=== PATIENT | female | born 1995 | race Caucasian/White ===

== ENCOUNTER 2024-05-01 02:18 | Observation (INO) | payer BC, SELFPAY ==
[2024-04-30 20:36] VITALS: BP 124/80
[2024-04-30 20:50] LABS: % Basophils 0.4 % (0-2); % Eosinophils 0.2 % (0-6); % Immature Granulocytes 0.3 % (0-0.5); % Lymphocytes 8.9 % (20.5-51.1); % Monocytes 3.8 % (1.7-9.3); % Neutrophils 86.4 % (42.2-75.2); Absolute Basophils 0.1 10^3/uL (0-0.2); Absolute Immature Granulocytes 0.1 10^3/uL (0-0.05); Absolute Lymphocytes 1.4 10^3/uL (1.2-3.4); Absolute Monocytes 0.6 10^3/uL (0.1-0.6); Absolute Neutrophils 14.1 10^3/uL (1.4-6.5); Hemoglobin 13.5 g/dL (12.0-16.0); Mean Corp Hgb Conc. 36.5 g/dL (33.0-37.0); Mean Corpuscular Hgb 29.7 pg (27.0-31.0); Mean Corpuscular Volume 81.3 fL (81.0-99.0); Mean Platelet Volume 9.3 fL (7.4-10.4); Nucleated Red Blood Cells % 0 %; Platelet Count 278 10^3/uL (130-400); Red Blood Cell Count 4.55 10^6/uL (4.20-5.40); Red Cell Dist. Width 11.7 % (11.5-14.5); White Blood Cell Count 16.2 10^3/uL (4.8-10.8)
[2024-04-30 21:01] LABS: Lactic Acid 1.1 mmol/L (0.7-2.0)
[2024-04-30 21:05] LABS: HCG, Serum Qualitative Screen Negative
[2024-04-30 21:15] LABS: ALT (SGPT) 21 U/L (0-35); AST (SGOT) 27 U/L (14-36); Albumin 4.7 g/dl (3.5-5.0); Alkaline Phosphatase 50 U/L (38-126); Blood Urea Nitrogen 13 mg/dl (7-17); Calcium 9.9 mg/dl (8.4-10.2); Carbon Dioxide 18 mmol/L (22-30); Chloride 107 mmol/L (98-107); Glucose 123 mg/dl (70-99); Lipase 124 U/L (23-300); Potassium 4.1 mmol/L (3.5-5.1); Sodium 139 mmol/L (135-145); Total Bilirubin 0.6 mg/dl (0.2-1.3); Total Protein 7.3 g/dl (6.3-8.2); eGFR > 60.00
--- NOTE | 2024-04-30 22:46 | ED.GENMED ---
History of Present Illness
General
Chief Complaint: Abdominal Symptoms
Source: patient
Exam Limitations: none
Time Seen by Provider: 04/30/24 22:25
Nursing documentation reviewed up to this point in time: agreed with
History of Present Illness
History of Present Illness:
Patient is a 28-year-old female presenting to the emergency department with abdominal pain. Patient states symptoms seemed to start acutely around 4 PM this afternoon while she was sitting down at work. Patient states symptoms have persisted and
become more severe since. She describes pain that initially was in her left lower abdomen but now seems more prominent in her right lower abdomen. Patient reports significant nausea and multiple episodes of vomiting. No known fevers although does
feel 'chilly'. Patient last ate lunch today which was many hours prior to onset of pain. She has had no appetite since lunch.
Patient did feel like she had mild dysuria a few days ago although has since resolved. No hematuria.
LMP was a few weeks ago. No history of abdominal surgeries.
Past History
Past History
ED Past Medical History: Other (headaches)
ED Past Surgical History: None
Social History
Living: with family
Review of Systems
Review of Systems
Allergies reviewed?: Yes
All Other Systems: ROS reviewed and negative except as documented in HPI and ROS
Phy Exam
Physical Exam
Physical Exam:
Vitals: Patient's vital signs are stable. Afebrile
General: Patient is actively retching on my examination. Mildly uncomfortable due to pain.
Skin: Warm and dry, no rashes or lesions
Head: Normocephalic, atraumatic
Eyes: Sclera nonicteric. EOMs intact. No nystagmus.
Throat: Protecting airway
Neck: Normal ROM, no cervical spine tenderness, no meningismus
Cardiac: Regular rate and rhythm, no murmurs.
Pulm: Normal respiratory effort, no wheezes, rales, rhonchi heard on exam.
Abdomen: Abdomen soft. Moderate tenderness in right lower quadrant. No rebound tenderness or guarding. Negative Jonas sign. No CVA tenderness.
Extremities: No evidence of cyanosis or edema. Great distal pulses
Neuro: Grossly intact.
Psychiatric: Normal affect.
Course
Orders/Labs/Results
Orders:
Orders
04/30/24 20:39
Test Result ONCE
04/30/24 20:44
Complete Blood Count/With Diff Urgent
Comprehensive Metabolic Panel Urgent
HCG, Serum Qualitative Screen Urgent
Lactic Acid Urgent
Lipase Urgent
04/30/24 22:44
0.9% Sodium Chloride 1000 ml [Nss] 1,000 ml IV BOLUS
Ketorolac [Toradol] 15 mg IV NOW STA
Ondansetron Injectable [Zofran] 4 mg IV NOW STA
04/30/24 22:45
CT Abd/Pel (IV only)-DH only Urgent
Comment:
Reason For Exam: RLQ abdominal pain, +nausea/vomiting
04/30/24 23:08
Urine Culture Reflexed from UA [Urinalysis Reflex To Culture] Urgent
Date Specimen was Collected: 04/30/24
Time Specimen was Collected: 20:39
04/30/24 23:37
Morphine Sulfate 2 mg IV NOW STA
Piperacillin/Tazo 3.375 Gram [Zosyn] 3.375 gram in 50 ml IV NOW
05/01/24 01:01
Admit/Transfer Patient As Directed
Co-Sign Provider:
Level of Care: Observation services
Assign to:: Medical/Surgical
Physician / Group: Dr. Benito/ surgical
Diagnosis: Acute appendicitis
PRN Pain Medication Management As Directed
May give lesser potent ordered pain med per pt: Yes
preference::
Protocol:: Medication orders for pain may be administered in a
manner that supports deferring to patient preference
when the pt is:
- Requesting an ordered lesser potent pain medication.
Least to most potent pain medications are defined
as: acetaminophen < NSAID < tramadol < opioids
(morphine, oxycodone, hydromorphone).
- Requesting a lesser dose of the same medication IF
ORDERED.
- Requesting a less intrusive route of administration
if both routes are prescribed by the provider (PO <
IV).
05/01/24 01:02
Code Status As Directed
Resuscitation Status: Full Code
05/01/24 01:49
0.9% Sodium Chloride 1000 ml [Nss] 1,000 ml IV 80 mls/hr
05/01/24 02:31
Acetaminophen [Tylenol] 650 mg PO Q4HPRN PRN
Morphine Sulfate 2 mg IV Q4HPRN PRN
Ondansetron Injectable [Zofran] 4 mg IV Q6HPRN PRN
05/01/24 02:31
Activity As Directed
Activity Level: Out of Bed-Early Mobility
Vital Signs As Directed
Frequency: Per unit guidelines
DX Deep Vein Thrombosis Video Routine
05/01/24 Breakfast
NPO
Allow oral meds: Yes
Allow clear liquids: No
Piperacillin/Tazo 3.375 Gram [Zosyn] 3.375 gram in 50 ml IV Q6H
05/01/24 18:00
Enoxaparin Sodium [Lovenox] 40 mg SC QPM
Abnormal Lab Results
04/30/24 05/01/24
20:44 00:38
WBC 16.2 H 10^3/uL
(4.8-10.8)
Abs Immat Gran (auto) 0.1 H 10^3/uL
(0-0.05)
Absolute Neuts (auto) 14.1 H 10^3/uL
(1.4-6.5)
Neutrophils % 86.4 H %
(42.2-75.2)
Lymphocytes % 8.9 L %
(20.5-51.1)
Carbon Dioxide 18 L mmol/L
(22-30)
Glucose 123 H mg/dl
(70-99)
Urine Ketones Trace A
(Negative)
04/30/24 20:44
04/30/24 20:44
Vital Signs
Initial and Last Documented VS:
Initial Vital Signs
Temp Pulse Resp BP Pulse Ox
97.5 F 94 20 124/80 97
04/30/24 20:36 04/30/24 20:36 04/30/24 20:36 04/30/24 20:36 04/30/24 20:36
Last Documented Vital Signs
Temp Pulse Resp BP Pulse Ox
97.5 F 75 16 130/65 96
04/30/24 20:36 05/01/24 00:47 05/01/24 00:47 05/01/24 00:47 05/01/24 00:47
MDM/Problems Addressed
Differential Diagnosis Includes:
Not limited to: Appendicitis, UTI/pyelonephritis, kidney stone, cholecystitis, ovarian cyst
MDM/Problems Addressed:
28-year-old female with acute onset lower abdominal pain associated with nausea/vomiting. No fever. No urinary symptoms. Vital signs stable. Patient afebrile on arrival to emergency department. Exam as above. Patient actively retching on my
initial evaluation. Patient is conversational and nontoxic-appearing. Abdomen is soft although she does have moderate tenderness in right lower quadrant at McBurney's point. No rebound tenderness or guarding. Cardio/pulmonary assessment
unremarkable. Patient is perfusing well. Labs were initiated in triage which are significant for a leukocytosis of 16.2. Otherwise no clinically significant abnormalities. Differential broad at this time although high suspicion for possible
acute appendicitis. Lower suspicion for pelvic etiology given location of pain. Will check CT abdomen/pelvis. Will give IV fluids, pain control. Will obtain urinalysis. Will closely monitor and reassess
Chronic conditions affecting care:
N/A
Acute Exacerbation and/or Progression of Chronic Illness:
N/A
*Radiology
Radiology exam reviewed: preliminary read by ED provider and radiology read reviewed (Acute uncomplicated appendicitis)
*Pulse Oximetry
Patient hypoxic: no
*EKG
Interpreted by ED Provider?: NA
*Slab Lifting Supervisor Interpretation
Rate: Slab Lifting Supervisor- N/A
*Critical Care Note
Total Time (30-74mins, 75-104mins- exclusive of procedures): Not Applicable
Patient Management
Discussion with other providers: Tire Recapping Machine Operator (General surgery - Dr. Benito)
Escalation/DeEscalation of care consider admission/obs:
Admit to general surgery service for IV abx, plan for OR tomorrow for appendecromt
Update Note
Update Note:
Update 11:26 PM: Spoke with [facility] on the phone�CT shows uncomplicated acute appendicitis. In to discuss with patient and reassess at bedside. Patient does report mild improvement following Toradol though still with some discomfort.
Will give low-dose IV morphine. Patient started on IV Zosyn. Discussed case with Dr. Benito-plan for continued IV antibiotics, n.p.o., OR tomorrow. Patient accepted to general surgery service in stable condition. Case discussed with attending
physician.
ED Attending Note
-
Portions of this chart may have been created with voice recognition software.� Occasional wrong word or��sound alike� substitutions may have occurred due to the inherent limitations of voice recognition software.
Discharge Plan
Departure
Patient Disposition: Admit
Date of Disposition: 04/30/24
Time of Disposition: 23:50
Presentation/result/management discussed w/ accepting MD/DO: Dr. Benito
Discharge Problem:
Acute appendicitis
Interventions
Interventions:
*Risk Screen - Suicide Last Done: 04/30/24 23:06
*General Assessment Last Done: 04/30/24 20:36
*Neglect/Abuse Screening Last Done: 04/30/24 23:06
ED- Fall Risk Assessment Last Done: 04/30/24 23:04
*ED COVID-19 Vaccine History Last Done: 04/30/24 23:06
WB-Lnkofi-Grslwmtgjv Assessment Last Done: 04/30/24 23:03
[2024-04-30] MEDS: NSS 1000 IV (23:00)
[2024-04-30] MEDS: TORADOL 15 MG IV (23:00)
[2024-04-30] MEDS: ZOFRAN 4 MG IV (23:00)
[2024-04-30 23:04] VITALS: BP 123/69
[2024-04-30 23:05] VITALS: BMI 39.0
[2024-04-30] MEDS: MORPHINE SULFATE 2 MG IV (23:43)
[2024-04-30] MEDS: ZOSYN 50 IV (23:43)
[2024-05-01] VITALS (13 sets, daily range): BP systolic 115–135; BP diastolic 65–82
[2024-05-01 00:49] LABS: Urine Albumin Negative (Neg - Trace); Urine Bilirubin Negative (Negative); Urine Character Clear (Clear); Urine Color Yellow; Urine Glucose Negative (Negative); Urine Ketone Trace (Negative); Urine Leukocyte Negative (Negative); Urine Nitrite Negative (Negative); Urine Occult Blood Negative (Negative); Urine Urobilinogen Negative (Neg - 1+)
--- NOTE | 2024-05-01 01:08 | HPS.HSE ---
Addendum entered and electronically signed by Fco Montero MD 05/01/24 07:50:
pt seen and examined independently of STUD [employer], agree with documented H&P
HPI: otherwise healthy 28 y/o female with acute onset abd pain 4pm yesterday that has localized to RLQ with n/v. no similar priors
denies any pertinent PMH and no PSH
AFVSS
NAD AAOx3 but uncomfortable appearing
ABD: soft, ND, TTP localizing to RLQ
CT with inflamed and distended appendix with fecalith x 2 in lumen. no fluid collections/abscess
A/P: 28 y/o female with acute appendicitis
discussed tx options; medical and surgical. pt in agreement to proceed with appendectomy. lap appy reviewed in detail including operative technique, alternative tx options, benefits and risks such as but not limited to bleeding, infectious related
complications and iatrogenic injury to surrounding structures. discussed typical post op recovery and care.
pt on OR schedule for today - lap appy
Zosyn
supportive care awaiting OR availability
Original Note:
Family Physician
-
Family Physician: * NONE
Chief Complaint
-
Abdominal pain
History of Present Illness
a 28 years old female with no PMH and no past surgical history, present in ER with a complain of abdominal pain. Symptoms started around 4pm afternoon with initially LLQ pain then RLQ, pain rate 5/10 of pain scale. Patient used heating pad. Pain
started to get worse and patient was not able to get in comfortable position. Symptoms was associated with chills, nausea and vomiting x 10 patient was not able to tolerate PO intake at this time. Denied SOB, chest pain, constipation, diarrhea,
urinary symptoms or any other symptoms. Patient is not currently on any prescribed meds at home.
Medical History
Past Medical History
Past Medical History: Reports Other (headache)
Past Surgical History: Reports None
Social History
Tobacco: Non-smoker
Alcohol: Occasional
Drug: None
Personal: Other
Living: With Family
Employment: Employed
Family History
Family History: Not pertinent
Allergies / Home Medications
Allergies reflects when Allergies were last updated in [facility].
Home Medications with original date entered in [facility]
Allergy/Medication List:
Patient Allergies
Allergy/AdvReac Type Severity Reaction Status Date / Time
No Known Allergies Allergy Verified 04/30/24 20:36
Home Medications Table - record
�Medication �Instructions �Recorded �Confirmed
No Meds [No Current Medications] 05/01/24 05/01/24
Review of Systems
-
A 12 point ROS was completed and negative except as noted: Yes
Constitutional: Reports No Symptoms
EENT: Reports No Symptoms
Respiratory: Reports No Symptoms
Cardiac: Reports No Symptoms
Abdomen/GI: Reports Abdominal Pain, Nausea and Vomiting
: Reports No Symptoms
Musculoskeletal: Reports No Symptoms
Psych: Reports No Symptoms
Physical Exam
Vital Signs
Vital Signs
Temp Pulse Resp BP Pulse Ox
97.5 F 75 16 130/65 96
04/30/24 20:36 05/01/24 00:47 05/01/24 00:47 05/01/24 00:47 05/01/24 00:47
Physical Exam
General: No Apparent Distress
Respiratory: Clear
Cardiac: Regular Rhythm
GI: Soft, Non Tender (Received pain meds before the exam) and Normal Bowel Sounds
Musculoskeletal: No Edema
Neuro: Awake and AO x 3
Laboratory Results
-
04/30/24 20:44
04/30/24 20:44
Laboratory Results
Lactic Acid 1.1 mmol/L (0.7-2.0) 04/30/24 20:44
Total Bilirubin 0.6 mg/dl (0.2-1.3) 04/30/24 20:44
AST 27 U/L (14-36) 04/30/24 20:44
ALT 21 U/L (0-35) 04/30/24 20:44
Alkaline Phosphatase 50 U/L (38-126) 04/30/24 20:44
Lipase 124 U/L (23-300) 04/30/24 20:44
Data Reviewed
-
CT Scan: Discussed with Patient
Lab Data: Discussed with Patient
Impression/Plan
-
CT abd/PLVS shows acute appendicitis with appendix up to 14 mm and appendicolith within the appendix.
WBC 16.2
IMPRESSION:
Acute appendicitis
PLAN:
Admit/ observation/ med-sug Dr. Benito/ Surgical services
NPO
IVF
Abx Zosyn
antiemetics
Analgesics as needed
DVT prophylaxis Lovenox sq
Code Status Full code
[2024-05-01] MEDS: NSS 1000 IV ×2 (01:56→12:20)
[2024-05-01] MEDS: MORPHINE SULFATE 2 MG IV (04:26)
[2024-05-01] MEDS: ZOSYN 50 IV ×4 (06:42→23:28)
[2024-05-01] MEDS: ZOFRAN 4 MG IV (06:42)
[2024-05-01] MEDS: DILAUDID 0.5 MG IV ×2 (08:05→22:47)
[2024-05-01] MEDS: TYLENOL 650 MG PO (08:23)
--- NOTE | 2024-05-01 11:01 | CM ---
Cm reviewed medical records. CM provided patient with OBS letter. Patient is otherwise independent. No needs noted.
PLAN: home, no needs noted.
[2024-05-01] MEDS: DILAUDID 1 MG IV ×2 (12:19→23:52)
--- NOTE | 2024-05-01 12:59 | W.SUR.PREOP ---
Pre-Operative Surgical Note
-
I have examined this patient prior to the performance of the scheduled procedure.
The patient's condition is unchanged from the time of the current History and
Physical and the patient is able to undergo the scheduled procedure.
--- NOTE | 2024-05-01 14:51 | W.IMMPOSTOP ---
Addendum entered and electronically signed by Fco Montero MD 05/01/24 15:24:
#[id number]
Original Note:
Surgical Immed Post Op Note
-
Primary Surgeon: Winston
Assisting Surgeon: None
Pre-op Diagnosis: Acute appendicitis
Post-op Diagnosis: Acute appendicitis
Procedure Performed: Laparoscopic appendectomy
Anesthesia Type: GETA +0.25% Marcaine
Specimen / Cultures: Appendix
Estimated Blood Loss: 6 mL
Complications: None immediate
Operative Findings: Acutely inflamed appendix with some surrounding fibrinous exudate. No purulence. No abscess, no perforation or disruption of appendix with appendectomy. Appendix divided flush with the cecum utilizing Endo ZABRINA 30 sykes stapler.
Mesoappendix taken with harmonic.
Plan: Advance diet as tolerated
Continue Zosyn overnight
Discharge home tomorrow on total of 5-day postoperative course Augmentin
--- NOTE | 2024-05-01 16:20 | PTCARENOTE ---
Pt arrived to 2S on a stretcher, assisted to bed via NSG staff, gait steady. Pt drowsy but easily arouses to verbal stimuli. Abdominal lap sites C/D/I, glued and ZAINA. IVF infusing per order. Bed locked and in the lowest position, safety maintained.
Oriented to room and call bon wooten at bedside.
[2024-05-01] MEDS: LOVENOX 40 MG SC (17:12)
[2024-05-01] MEDS: TORADOL 10 MG IV (18:33)
[2024-05-02] MEDS: NSS IV ×2 (00:16→04:02)
[2024-05-02 03:16] VITALS: BP 111/68
[2024-05-02] MEDS: TORADOL 10 MG IV (05:07)
[2024-05-02] MEDS: ZOSYN 50 IV (05:52)
[2024-05-02 07:35] VITALS: BP 113/61
[2024-05-02] MEDS: ROXICODONE 5 MG PO (08:27)
--- NOTE | 2024-05-02 09:09 | W.PN.GS2 ---
Today's Communication / Plan
-
dispo planning
Assessment / Plan
-
28 yo female presenting with acute appendicitis now POD #1 lap appi with some surrounding fibrinous exudate noted intraop
AFVSS
Following expected post operative course
--continue regular diet
--prn analgesics
--will transition to PO abx upon discharge
--dispo planning
Subjective Data
-
Date of Service: May 02, 2024
Patient seen and examined at bedside with Dr. Philip. Hou n/v. Tolerating diet. Passing flatus. Some soreness but pain prior to surgery is resolved.
Objective Data
-
Intake and Output
05/01/24 05/02/24 05/03/24
06:59 06:59 06:59
Intake Total 2049
Balance 2049
Intake:
Oral fluids 960 / 960
IV fluids (Total) 940 / 940
Normosol 100 / 100
IV piggybacks 150 / 150
Other:
Number of approximated MODERATE 2
amounts of urine
Vital Signs
Temp Pulse Resp BP Pulse Ox
97.6 F 75 18 113/61 99
05/02/24 07:35 05/02/24 07:35 05/02/24 07:35 05/02/24 07:35 05/02/24 07:35
Lab Results
04/30/24 20:44
04/30/24 20:44
Calcium 9.9 mg/dl (8.4-10.2) 04/30/24 20:44
Total Bilirubin 0.6 mg/dl (0.2-1.3) 04/30/24 20:44
AST 27 U/L (14-36) 04/30/24 20:44
ALT 21 U/L (0-35) 04/30/24 20:44
Alkaline Phosphatase 50 U/L (38-126) 04/30/24 20:44
Total Protein 7.3 g/dl (6.3-8.2) 04/30/24 20:44
Albumin 4.7 g/dl (3.5-5.0) 04/30/24 20:44
Physical Exam
-
NAD
ABD soft, NT, ND
Incisions well approximated without erythema, glue intact
--- NOTE | 2024-05-02 09:18 | CM ---
Reviewed the chart notes. Patient discharged to home with family providing transportation. No needs. CM continues to be available to patient/family and is monitoring medical plan for needs at discharge.
Plan: Discharge to home when medically stable. No need identified at this time.
--- NOTE | 2024-05-02 09:52 | W.DS.TRANS ---
DC Summary - Respiratory Care Specialist
-
Discharge Instructions:
Discharge Diagnosis/Procedures acute appendicitis; lap appy
Diet As tolerated,Regular
Activity No strenuous activity
Driving Restrictions No driving for 24 hours
Bathing Restrictions OK to Shower
Wound Care Glue at surgical sites typically peels off in 2
to 3 weeks
Instructions:
Stand-Alone Forms:
Changes to Home Medications: No
Discharge Medications:
DC Medications w/original date entered in [facility]
acetaminophen 500 mg tablet (Tylenol Extra Strength) 1,000 mg (2 x 500 mg) PO Q6HPRN PRN mild pain #1 tab 05/01/24
amoxicillin 875 mg-potassium clavulanate 125 mg tablet 1 tab PO Q12 antibiotic #8 tabs 05/01/24
ibuprofen 200 mg tablet 400 - 600 mg (2 - 3 x 200 mg) PO Q6HPRN PRN moderate pain #1 tab 05/01/24
oxycodone 5 mg tablet 5 mg PO Q4HPRN PRN breakthrough/severe pain #5 tabs 05/01/24
Home Medication Changes
Pending Results: No
== END 2024-05-02 09:58 | disposition home or self-care (01) ==
LOC: 2 SOUTH 02:18
PROVIDERS: Emergency Medicine; ADMITTING PHYSICIAN Surgery; ATTENDING PHYSICIAN Surgery; EMERGENCY PHYSICIAN Emergency Medicine
DX: K35.80 Unspecified acute appendicitis (principal); K38.1 Appendicular concretions; R10.9 Unspecified abdominal pain; R11.2 Nausea with vomiting, unspecified
CPT/HCPCS: 44970; 88304; 74177; 80053; 81003; 83605; 83690; 84703; 85025; 96365; 96375; 99285; C1776; G0378; Q9967

== ENCOUNTER → 2025-01-22 17:45 | Outpatient (REF) | payer BC, SELFPAY ==
[2025-01-29 05:23] LABS: HPV, High Risk Not Detected; HPV, High Risk Source Cervical
== END ==
LOC: CPAP 17:45
PROVIDERS: ATTENDING PHYSICIAN Nurse Practitioner Adult Health
DX: Z01.419 Encounter for gynecological examination (general) (routine) without abnormal findings (principal)
CPT/HCPCS: 87624

== ENCOUNTER → 2025-02-05 15:11 | Outpatient (REF) | payer BC, SELFPAY | LOC: RAD 15:11 | PROVIDERS: ATTENDING PHYSICIAN Nurse Practitioner Adult Health | DX: Z97.5 Presence of (intrauterine) contraceptive device (principal); N93.9 Abnormal uterine and vaginal bleeding, unspecified | CPT/HCPCS: 76830; 76856 ==

== ENCOUNTER → 2025-03-05 06:43 | Outpatient (REF) | payer BC, SELFPAY ==
[2025-03-05 07:48] LABS: Hematocrit 38.8 % (37.0-47.0); Hemoglobin 13.2 g/dL (12.0-16.0); Mean Corp Hgb Conc. 34.0 g/dL (33.0-37.0); Mean Corpuscular Volume 90.0 fL (81.0-99.0); Nucleated Red Blood Cells % 0 %; Platelet Count 270 10^3/uL (130-400); Red Cell Dist. Width 11.7 % (11.5-14.5)
[2025-03-05 07:59] LABS: ALT (SGPT) 20 U/L (0-35); AST (SGOT) 24 U/L (14-36); Albumin 4.6 g/dl (3.5-5.0); Alkaline Phosphatase 43 U/L (38-126); Blood Urea Nitrogen 11 mg/dl (7-17); Calcium 9.5 mg/dl (8.4-10.2); Carbon Dioxide 24 mmol/L (22-30); Chloride 109 mmol/L (98-107); Glucose 91 mg/dl (70-99); HDL Cholesterol 40 mg/dl; LDL Cholesterol, Calculated 84 mg/dl; Potassium 4.5 mmol/L (3.5-5.1); Sodium 140 mmol/L (135-145); Total Protein 7.2 g/dl (6.3-8.2); Very Low Density Lipoprotein 24 mg/dl (0-30); eGFR > 60.00
== END ==
LOC: REG 06:43
PROVIDERS: ATTENDING PHYSICIAN Internal Medicine
DX: Z00.00 Encounter for general adult medical examination without abnormal findings (principal); E66.09 Other obesity due to excess calories; Z68.31 Body mass index [BMI] 31.0-31.9, adult; E66.811 Obesity, class 1
CPT/HCPCS: 36415; 80053; 80061; 84443; 85025